=== PATIENT | male | born 1990 | race American Indian/Alaskan Native ===

== ENCOUNTER 2016-06-01 00:54 | Emergency (ER) | payer BC, OTHER ==
[2016-06-01 01:17] VITALS: BP 145/78
[2016-06-01] MEDS ORDERED: Sodium Chloride 0.9% 10 ML Syringe FLUSH PRN (01:35)
[2016-06-01] MEDS ORDERED: HYDROmorphone 1 MG/ML Syringe IVPUSH ONE (01:35)
[2016-06-01] MEDS ORDERED: Cephalexin 500 MG Cap PO ONE (01:36)
[2016-06-01] MEDS ORDERED: Sulfamethoxazole/Trimethoprim 800-160 MG Tab PO ONE (01:36)
--- NOTE | 2016-06-01 01:43 | EDM.PDOC ---
ED HPI Trauma - General Chief Complaint: Upper Extremity Injury/Pain Stated Complaint: IN BY AMBULANCE Time Seen by Provider: 06/01/16 00:55 Source: Reports: Patient History Limitations: Reports: No limitations - History of Present Illness INITIAL COMMENTS - FREE TEXT/NARRATIVE: This 26 yo male patient was brought to the ED with left hand pain due [place] The patient [place] get a [place] member when the wind caught the door and slammed it on his left hand. The patient was brought to the emergency department by [facility]. Symptom Onset Date: 06/01/16 Occurred When: just prior to arrival Occurred Where: other Method of Injury: direct blow Severity: moderate Pain/Injury Location: Reports: upper extremity, left Consciousness: Reports: no loss of consciousness Associated Symptoms: Reports: no other symptoms Allergies/ADRs: Allergies No Known Allergies Allergy (Verified 06/01/16 01:17) Home Medications: Ambulatory Orders . [No Known Home Meds] 11/16/13 [Confirmed 09/16/14] Past Medical History - Past Health History Medical/Surgical History: Denies Medical/Surgical History Other Musculoskeletal History: previous right shoulder dislocation, 09/16/2014 had EMG procedure to right shoulder - Past Surgical History Dermatological Surgical History: Reports: Skin graft Social & Family History - Family History Family Medical History: Noncontributory - Tobacco Use Smoking Status *Q: Current Every Day Smoker Years of Tobacco use: 9 Packs/Tins Daily: 0.5 Second Hand Smoke Exposure: No - Caffeine Use Caffeine Use: Reports: Coffee, Soda, Tea, Other Other Caffeine Use: rare energy drink as well - Alcohol Use Days Per Week of Alcohol Use: 0 - Recreational Drug Use Recreational Drug Use: Yes Drug Use in Last 12 Months: Yes Recreational Drug Type: Reports: Marijuana/Hashish Recreational Drug Use Frequency: Socially Review of Systems - Review of Systems Review Of Systems: ROS reveals no pertinent complaints other than HPI. Trauma Exam - Physical Exam Exam: See Below Exam Limited By: No limitations General Appearance: Reports: alert, WD/WN, moderate distress, obese Head: Reports: atraumatic, normocephalic Eyes: bilateral eye: EOMI, normal inspection, PERRL Ears: Reports: normal external exam, normal canal, hearing grossly normal, normal TMs Nose: Reports: normal inspection, normal mucousa, no blood Throat/Mouth: Reports: Normal inspection, Normal lips, Normal teeth, Normal gums , Normal oropharynx, Normal voice, No airway compromise Neck: Reports: non-tender, full range of motion, normal alignment, normal inspection Respiratory Exam: Reports: no respiratory distress, lungs clear, normal breath sounds Cardiovascular: Reports: normal peripheral pulses, regular rate, rhythm, no edema, no gallop, no JVD, no murmur, no rub GI/Abdominal: Reports: normal bowel sounds, soft, non tender, no organomegaly, no distention, no abnormal bruit, no mass (Male) Exam: Deferred Rectal (Males) Exam: Deferred Extremities: Reports: pain with movement (left hand (2-4 th distal fingers)), tenderness Neurologic: Reports: ux research associate II-XII nml as tested, alert, normal mood/affect, oriented x 3 - Génesis Coma Score Best Eye Response (Génesis): (4) open spontaneously Best Verbal Response (Génesis): (5) oriented Best Motor Response (Génesis): (6) obeys commands [place] Total: 15 ED TRAUMA EXTREMITY PROCEDURES - Laceration/Wound Repair Left Distal Finger Lac/wound length in cm: 2.0 Appearance: subcutaneous Distal NVT: neuro & vascular intact Anesthetic type: digital Local anesthesia - Bupivicaine (Marcaine): 0.25% plain Local anesthetic volume: other (6) Skin prep: chlorhexidine (hibiciens) Exploration/Debridement/Repair: wound explored, explored to base, no foreign material found Closed with: sutures Suture size: 4-0 # of sutures: 4 Suture type: prolene, interrupted, simple Drain placement: No Sterile dressing applied: nurse Tetanus status addressed: Yes Complications: No Course - Vital Signs Last Recorded V/S: Last Vital Signs Temp 36.3 C 06/01/16 00:54 Pulse 124 H 06/01/16 00:54 Resp 20 06/01/16 00:54 BP 145/78 H 06/01/16 00:54 Pulse Ox 92 L 06/01/16 00:54 - Orders/Labs/Meds Orders: Active Orders 24 hr Category Date Time Status Sodium Chloride 0.9% [Saline Flush] Med 06/01/16 01:35 Ordered 10 ml FLUSH ASDIRECTED PRN Saline Lock Insert [OM.PC] Routine Oth 06/01/16 01:35 Ordered Medication Orders Sodium Chloride (Saline Flush) 10 ml FLUSH ASDIRECTED PRN PRN Reason: Keep Vein Open Last Admin: 06/01/16 01:45 Dose: 10 ml Meds: Medications Generic Name Dose Route Start Last Admin Trade Name Ingrid PRN Reason Stop Dose Admin Sodium Chloride 10 ml 06/01/16 01:35 06/01/16 01:45 Saline Flush FLUSH 10 ml ASDIRECTED PRN Administration Keep Vein Open Discontinued Medications Generic Name Dose Route Start Last Admin Trade Name Ingrid PRN Reason Stop Dose Admin Bacitracin 1 dose 06/01/16 02:42 Bacitracin Oint 1 Gm TOP 06/01/16 02:43 ONETIME ONE Bupivacaine HCl 10 ml 06/01/16 02:05 06/01/16 02:15 Sensorcaine-Mpf 0.25% INJECT 06/01/16 02:06 6 ml ONETIME ONE Administration Cephalexin 500 mg 06/01/16 01:36 06/01/16 01:45 Keflex PO 06/01/16 01:37 500 mg ONETIME ONE Administration Hydromorphone HCl 1 mg 06/01/16 01:35 06/01/16 01:44 Dilaudid IVPUSH 06/01/16 01:36 1 mg ONETIME ONE Administration Trimethoprim/Sulfamethoxazole 1 tab 06/01/16 01:36 06/01/16 01:45 Septra Ds PO 06/01/16 01:37 1 tab ONETIME ONE Administration - Re-Assessments/Exams Free Text/Narrative Re-Assessment/Exam: 06/01/16 01:41 Due to weather and travel complications. The patient's wounds were sutured. The patient was given oral antibiotics. The patient's 3rd finger was splinted. The patient was given pain medications. The patient was advised to follow-up with an billing specialist by the end of the week for continued evaluation and further management. Departure - Departure Time of Disposition: 03:00 Disposition: Home, Self-Care 01 Condition: fair Clinical Impression: Fracture, finger, distal phalanx, open Qualifiers: Encounter type: initial encounter Finger: middle finger Fracture alignment: displaced Laterality: left Qualified Code(s): S62.633B - Displaced fracture of distal phalanx of left middle finger, initial encounter for open fracture Fracture, finger, distal phalanx Qualifiers: Encounter type: initial encounter Finger: ring finger Fracture type: closed Fracture alignment: nondisplaced Laterality: left Qualified Code(s): S62.665A - Nondisplaced fracture of distal phalanx of left ring finger, initial encounter for closed fracture Laceration of finger of left hand Qualifiers: Encounter type: initial encounter Qualified Code(s): S61.219A - Laceration without foreign body of unspecified finger without damage to nail, initial encounter Instructions: Finger Fracture, [id number], Nail Bed Injury, [id number], Laceration Care, Adult Forms: ED Department Discharge Care Plan Goals: The patient was advised of the examination results during the visit. The patient 's wound margins were well approximated while in the ED. The patient was advised to follow-up with an billing specialist by the end of the week for continued evaluation and management. The patient was given IV Dilaudid (for pain ), IM Adacel, PO Big Bar (for pain), PO Keflex (antibiotic), and PO Bactrim DS ( antibiotic). The patient was discharged with a script for 1) Keflex (500 mg) to take 1 by mouth 4 times per day for 10 days, 2) Bactrim DS to take 1 by mouth 2 times per day for 10 days and [place] (10/325) #10 to take 1 by mouth every 8 hours as needed for pain. If the patient has any additional symptoms or concerns , the patient should visit his primary care facility, an billing specialist or return to the emergency department. - My Orders Last 24 Hours: My Active Orders 06/01/16 01:35 Sodium Chloride 0.9% [Saline Flush] 10 ml FLUSH ASDIRECTED PRN Saline Lock Insert [OM.PC] Routine - Assessment/Plan Last 24 Hours: My Active Orders 06/01/16 01:35 Sodium Chloride 0.9% [Saline Flush] 10 ml FLUSH ASDIRECTED PRN Saline Lock Insert [OM.PC] Routine
[2016-06-01] MEDS ORDERED: Bupivacaine 0.25% 10 ML SDV INJECT ONE (02:05)
[2016-06-01] MEDS ORDERED: Bacitracin Oint 1 GM U/D Packet TOP ONE (02:42)
[2016-06-01] MEDS ORDERED: Acetaminophen/HYDROcodone 325-10 MG Tab PO ONE (03:00)
[2016-06-01] MEDS ORDERED: Diphtheria,Pertussis(Acell),Tetanus Vaccine 0.5 ML SDV IM ONE (03:00)
== END 2016-06-01 03:30 | disposition home or self-care (01) ==
LOC: DL.ED 00:54
DX: S62.633B Displaced fracture of distal phalanx of left middle finger, initial encounter for open fracture (principal); S62.635A Displaced fracture of distal phalanx of left ring finger, initial encounter for closed fracture; S61.213A Laceration without foreign body of left middle finger without damage to nail, initial encounter; F17.210 Nicotine dependence, cigarettes, uncomplicated; Z23 Encounter for immunization; W23.0XXA Caught, crushed, jammed, or pinched between moving objects, initial encounter; Y92.59 Other trade areas as the place of occurrence of the external cause
CPT/HCPCS: 12001; 73120; 73140; 90471; 90715; 96374; 99283; 99284; A9270; J1170; J7050

== ENCOUNTER 2017-06-07 17:35 | Emergency (ER) | payer BC, OTHER ==
[2017-06-07 17:39] VITALS: BP 110/61
--- NOTE | 2017-06-07 18:06 | EDM.PDOC ---
ED HPI GENERAL MEDICAL PROBLEM - General Chief Complaint: Chest Pain Stated Complaint: IN BY [facility] Time Seen by Provider: 06/07/17 17:45 Source of Information: Reports: Patient - History of Present Illness INITIAL COMMENTS - FREE TEXT/NARRATIVE: Kenn is a 27 yo male who presents to the ED due to a three week history of left sided chest pain and shortness of breath. Reports pain to his chest is off and on. Worse with movement. Pain is localizes to left chest denies radiation. Patient reports that he has had a productive cough with yellow sputum. Patient was seen for his symptoms prior and completed a course of antibiotics, steroids , and an albuterol inhaler. Reports that his symptoms got significantly worse today. Left Lower Chest Pain Score (Numeric/FACES): 4 - Related Data Allergies Allergy/AdvReac Type Severity Reaction Status Date / Time No Known Allergies Allergy Verified 06/07/17 17:35 Home Meds: Home Meds Albuterol [Proair HFA] 8.5 gm IH PRN 06/07/17 [History] Past Medical History - Past Health History Medical/Surgical History: Denies Medical/Surgical History Respiratory History: Reports: Asthma Other Musculoskeletal History: previous right shoulder dislocation, 09/16/2014 had EMG procedure to right shoulder - Past Surgical History Dermatological Surgical History: Reports: Skin Graft Social & Family History - Family History Family Medical History: Noncontributory - Tobacco Use Smoking Status *Q: Current Every Day Smoker Years of Tobacco use: 5 Packs/Tins Daily: 1 Second Hand Smoke Exposure: No - Caffeine Use Caffeine Use: Reports: Coffee, Energy Drinks Other Caffeine Use: rare energy drink as well - Alcohol Use Days Per Week of Alcohol Use: 0 - Recreational Drug Use Recreational Drug Use: No Drug Use in Last 12 Months: Yes Recreational Drug Type: Reports: Marijuana/Hashish Recreational Drug Use Frequency: Socially ED ROS GENERAL - Review of Systems Review Of Systems: ROS reveals no pertinent complaints other than HPI. ED EXAM, GENERAL - Physical Exam Exam: See Below Exam Limited By: No Limitations General Appearance: Alert, WD/WN, No Apparent Distress Eye Exam: Bilateral Eye: EOMI, PERRL Ears: Normal External Exam, Normal Canal, Hearing Grossly Normal, Normal TMs Ear Exam: Bilateral Ear: Auricle Normal, Canal Normal, TM normal Nose: Normal Inspection, Normal Mucosa, No Blood Throat/Mouth: Normal Inspection, Normal Lips, Normal Teeth, Normal Gums, Normal Oropharynx, Normal Voice, No Airway Compromise Head: Atraumatic, Normocephalic Neck: Normal Inspection, Supple, Non-Tender, Full Range of Motion Respiratory/Chest: No Respiratory Distress, Lungs Clear, Normal Breath Sounds, No Accessory Muscle Use, Chest Non-Tender Cardiovascular: Normal Peripheral Pulses, Regular Rate, Rhythm, No Edema, No Gallop, No JVD, No Murmur, No Rub, Other (Pain to left chest wall worse with palpation. ) GI/Abdominal: Normal Bowel Sounds, Soft, Non-Tender, No Organomegaly, No Distention, No Abnormal Bruit, No Mass (Male) Exam: Deferred Rectal (Males) Exam: Deferred Back Exam: Normal Inspection, Full Range of Motion, NT Extremities: Normal Inspection, Normal Range of Motion, Non-Tender, Normal Capillary Refill, No Pedal Edema Neurological: Alert, Oriented, CN II-XII Intact, Normal Cognition, Normal Gait, Normal Reflexes, No Motor/Sensory Deficits Psychiatric: Normal Affect, Normal Mood Skin Exam: Warm, Dry, Intact, Normal Color, No Rash Lymphatic: No Adenopathy Course - Vital Signs Last Recorded V/S: Last Vital Signs Temp 97.4 F 06/07/17 17:36 Pulse 100 06/07/17 17:36 Resp 20 06/07/17 17:36 BP 110/61 06/07/17 17:36 Pulse Ox 94 L 06/07/17 17:36 - Orders/Labs/Meds Orders: Active Orders 24 hr Category Date Time Status EKG 12 Lead [EKG Documentation Completion] [RC] URGENT Care 06/07/17 17:51 Active Chest 2V [CR] Urgent Exams 06/07/17 18:45 Taken Labs: Laboratory Tests 06/07/17 06/07/17 06/07/17 Range/Units 17:45 17:45 17:45 WBC 14.2 H (5.0-10.0) 10^3/uL RBC 5.33 (4.6-6.2) 10^6/uL Hgb 16.4 (14.0-18.0) g/dL Hct 48.7 (40.0-54.0) % MCV 91.4 (80-100) fL MCH 30.8 (27.0-34.0) pg MCHC 33.7 (33.0-35.0) g/dL Plt Count 262 (150-450) 10^3/uL Neut % (Auto) 67.8 (42.2-75.2) % Lymph % (Auto) 23.0 (20.5-50.1) % [place] % (Auto) 7.6 (2-8) % Eos % (Auto) 1.4 (1.0-3.0) % Baso % (Auto) 0.2 (0.0-1.0) % D-Dimer, Quantitative < 100 (0-400) ng/mL Sodium 137 (135-145) mmol/L Potassium 3.8 (3.6-5.0) mmol/L Chloride 104 (101-111) mmol/L Carbon Dioxide 22.0 (21.0-31.0) mmol/L Anion Gap 14.8 BUN 18 (7-18) mg/dL Creatinine 0.7 (0.6-1.3) mg/dL Est Cr Clr Drug Dosing 170.90 mL/min Estimated GFR (MDRD) > 60 BUN/Creatinine Ratio 25.71 Glucose 93 (74-105) mg/dL Calcium 8.8 (8.4-10.2) mg/dl Total Bilirubin 1.1 H (0.2-1.0) mg/dL AST 30 (10-42) IU/L ALT 36 (10-60) IU/L Alkaline Phosphatase 68 (42-121) IU/L Troponin I (0.00-0.02) ng/ml B-Natriuretic Peptide (0-100) pg/ml Total Protein 7.6 (6.7-8.2) g/dl Albumin 3.9 (3.2-5.5) g/dl Globulin 3.7 Albumin/Globulin Ratio 1.05 03/14/18 Range/Units 17:45 WBC (5.0-10.0) 10^3/uL RBC (4.6-6.2) 10^6/uL Hgb (14.0-18.0) g/dL Hct (40.0-54.0) % MCV (80-100) fL MCH (27.0-34.0) pg MCHC (33.0-35.0) g/dL Plt Count (150-450) 10^3/uL Neut % (Auto) (42.2-75.2) % Lymph % (Auto) (20.5-50.1) % [place] % (Auto) (2-8) % Eos % (Auto) (1.0-3.0) % Baso % (Auto) (0.0-1.0) % D-Dimer, Quantitative (0-400) ng/mL Sodium (135-145) mmol/L Potassium (3.6-5.0) mmol/L Chloride (101-111) mmol/L Carbon Dioxide (21.0-31.0) mmol/L Anion Gap BUN (7-18) mg/dL Creatinine (0.6-1.3) mg/dL Est Cr Clr Drug Dosing mL/min Estimated GFR (MDRD) BUN/Creatinine Ratio Glucose (74-105) mg/dL Calcium (8.4-10.2) mg/dl Total Bilirubin (0.2-1.0) mg/dL AST (10-42) IU/L ALT (10-60) IU/L Alkaline Phosphatase (42-121) IU/L Troponin I < 0.02 (0.00-0.02) ng/ml B-Natriuretic Peptide < 5 (0-100) pg/ml Total Protein (6.7-8.2) g/dl Albumin (3.2-5.5) g/dl Globulin Albumin/Globulin Ratio Departure - Departure Time of Disposition: 19:13 Disposition: Refer to Observation Condition: Good Clinical Impression: Shortness of breath - Discharge Information Instructions: Shortness of Breath, Adult, [id number] Forms: ED Department Discharge Additional Instructions: Labs, x-ray, and assessment results reviewed with patient. Continue to use your inhaler for shortness of breath as needed 2 puffs every 4 hours. Tylenol/ ibuprofen as needed for pain. Follow-up next week with your primary care facility. Patient verbalizes understanding. Denies any additional questions or concerns at this time.
[2017-06-07 18:23] LABS: CHLORIDE,CL 104 mmol/L (101-111); SODIUM,NA 137 mmol/L (135-145)
== END 2017-06-07 19:23 | disposition other institution (70) ==
LOC: DL.ED 17:35
DX: R06.02 Shortness of breath (principal); R07.9 Chest pain, unspecified; F17.210 Nicotine dependence, cigarettes, uncomplicated
CPT/HCPCS: 36415; 71046; 80053; 83880; 84484; 85025; 85379; 93005; 99285